=== PATIENT | female | born 1960 | race Caucasian/White ===

== ENCOUNTER 2017-04-28 06:56 | Day surgery (SDC) | payer MEDICARE ==
--- NOTE | ~2017-04-28 | EGD ---
EGD REPORT [facility] [address] [id number] NAME: JORY FELIZ : 60 STATUS : REG [facility] [place] PAT#: [id number] AGE: 56 ADM/REG DATE : 04/28/17 MR#: [id number] REPORT SERV DATE: 04/28/17 DICTATED BY: SHASTA DAVILA DATE: 04/28/17 REPORT STATUS : Draft TRANSCRIBED BY: [facility] DATE: 04/28/17 [facility] Patient Name: Jory Feliz Date of : 1960 Attending MD: SHASTA DAVILA MD Procedure Date No Time: 04/28/2017 Procedure: Colonoscopy Indications: High risk colon cancer surveillance: Personal history of colonic polyps, High risk colon cancer surveillance: Crohn's small and large intestine Referring MD: NELSON BANUELOS MD Medicines: Sedation Required Anesthesia Staff Assistance Complications: No immediate complications. Estimated blood loss: Minimal. Procedure: Pre-Anesthesia Assessment: - ASA Grade Assessment: III - A patient with severe systemic disease. After I obtained informed consent, the scope was passed under direct vision. Throughout the procedure, the patient's blood pressure, pulse, and oxygen saturations were monitored continuously. The PCF [id number] was introduced through the anus and advanced to the ileocolonic anastomosis. The colonoscopy was performed without difficulty. The patient tolerated the procedure well. The quality of the bowel preparation was excellent. The terminal ileum and rectum were photographed. Findings: The terminal ileum contained a benign-appearing, intrinsic mild stenosis that was non-traversed. Biopsies were taken with a cold forceps for histology. There was evidence of a prior end-to-side ileo-colonic anastomosis in the transverse colon. This was patent. This was characterized by healthy appearing mucosa. This was traversed. The terminal ileum contained a single (solitary) two mm ulcer. No bleeding was present. Biopsies were taken with a cold forceps for histology. Biopsies were taken with a cold forceps from the transverse colon, descending colon, sigmoid colon and rectum for Crohn's surveillance. These biopsy specimens from the transverse colon, descending colon, sigmoid colon and rectum were sent to Pathology. Impression: - Stricture in the terminal ileum. Biopsied. - Patent end-to-side ileo-colonic anastomosis. EGD REPORT [address] [place]. [address] NAME: JORY FELIZ : 60 STATUS : REG [facility]#: [id number] AGE: 56 ADM/REG DATE : 04/28/17 MR#: [id number] REPORT SERV DATE: 04/28/17 DICTATED BY: SHASTA DAVILA DATE: 04/28/17 REPORT STATUS : Draft TRANSCRIBED BY: [employer] DATE: 04/28/17 - A single (solitary) ulcer in the terminal ileum. Biopsied. Recommendation: - Discharge patient to home. - Patient has a contact number available for emergencies. The signs and symptoms of potential delayed complications were discussed with the patient. Return to normal activities tomorrow. Written discharge instructions were provided to the patient. - Return to previous diet daily. - Continue present medications. - Await pathology results. - Repeat colonoscopy in 5 years for surveillance. Procedure Code(s): --- Professional --- 75597, Colonoscopy, flexible, proximal to splenic flexure; with biopsy, single or multiple Diagnosis Code(s): --- Professional --- K50.812, Crohn's disease of both small and large intestine with intestinal obstruction K63.3, Ulcer of intestine Z86.010, Personal history of colonic polyps CPT copyright 2013 [employer]. All rights reserved. The codes documented in this report are preliminary and upon trouble locater review may be revised to meet current compliance requirements. SHASTA DAVILA MD 04/28/2017 9:02 AM This report has been signed electronically. Number of Addenda: 0 Note Initiated On: 04/28/2017 8:35 AM Scope Withdrawal Time 0 hours 11 minutes 31 seconds [id number] [place] [id number]
[~2017-04-28 06:56] MED LIST: BENTYL10 PO; BUM2 PO; CELEXA20 PO; FOLIC PO; HUMIRA PEN SC; IBU-200200 MG PO; KLOR-CON 1010 MEQ PO; KRISTALOSE10 GM PO; LACTULOSE PO; LEVOTHYROXIN50 MCG PO; LEXAPRO10 PO; MTX2.5 PO; MULTIPLE VIT PO; OTEZLA PO; OTEZLA30 MG PO; P10 PO; P20 PO; PENTASA500 MG PO; PREDNISONE; SPIRO50 PO; T PO; XIFAXAN PO; XIFAXAN550 MG PO; ZEGERID1 CA1 PO; [UNRECOGNIZED DRUG - REMARK]; [UNRECOGNIZED DRUG - REMARK]; [UNRECOGNIZED DRUG - REMARK]; [UNRECOGNIZED DRUG - REMARK]
== END 2017-04-28 23:59 | disposition home or self-care (01) ==
LOC: DMU 06:56
PROVIDERS: Internal Medicine Gastroenterology
PROC: 0DBP8ZX Excision of Rectum, Via Natural or Artificial Opening Endoscopic, Diagnostic (ICD-10-PCS; 2017-04-28)
PROC: 0DBN8ZX Excision of Sigmoid Colon, Via Natural or Artificial Opening Endoscopic, Diagnostic (ICD-10-PCS; 2017-04-28)
PROC: 0DBM8ZX Excision of Descending Colon, Via Natural or Artificial Opening Endoscopic, Diagnostic (ICD-10-PCS; 2017-04-28)
PROC: 0DBL8ZX Excision of Transverse Colon, Via Natural or Artificial Opening Endoscopic, Diagnostic (ICD-10-PCS; 2017-04-28)
PROC: 0DBB8ZX Excision of Ileum, Via Natural or Artificial Opening Endoscopic, Diagnostic (ICD-10-PCS; principal; 2017-04-28 08:30)
DX: Z12.11 Encounter for screening for malignant neoplasm of colon (principal); K50.812 Crohn's disease of both small and large intestine with intestinal obstruction; K63.3 Ulcer of intestine; K74.60 Unspecified cirrhosis of liver; L40.9 Psoriasis, unspecified; Z86.010 Personal history of colon polyps; Z98.0 Intestinal bypass and anastomosis status; Z88.2 Allergy status to sulfonamides
CPT/HCPCS: 88305